=== PATIENT | male | born 1985 | race Caucasian/White ===

== ENCOUNTER 2017-02-21 15:16 | Outpatient (CLI) ==
[2016-06-07 18:51] VITALS: BMI 29.7
[2017-02-21 15:42] LABS: FLU INTERNAL QC INTERNAL QC VALID; RAPID FLU A NEGATIVE (NEGATIVE); RAPID FLU B POSITIVE (NEGATIVE)
== END 2017-02-21 15:17 | disposition home or self-care (01) ==
LOC: LAB 15:16
PROVIDERS: ATTEND Nurse Practitioner Family
DX: J02.9 Acute pharyngitis, unspecified (principal); R50.9 Fever, unspecified
CPT/HCPCS: 87651; 87804; 87880

== ENCOUNTER 2017-08-27 20:00 | Emergency (ER) ==
[2017-08-27 20:15] VITALS: BP 142/93; TEMP 97.8; BMI 29.0
[2017-08-27] MEDS ORDERED: BENADRYL PO STA (20:23)
[2017-08-27] MEDS ORDERED: SOLU-MEDROL 125 MG IM STA (20:23)
--- NOTE | 2017-08-27 20:27 | ED.PDOC ---
General ED Provider: Dr. JAGUAR DWYER Chief Complaint: Rash Stated Complaint: Pateint states that he feels like his face is swollen mostly on the right and also feels like there is a rash and that it is itcy. Denies any exposure to new medications, plants, food that he has not had. Denies any shortness of breath. Time Seen by Physician: 20:24 Mode of Arrival: Walk-In Information Source: Patient Exam Limitations: No limitations Nursing and Triage Documentation Reviewed and Agree: Yes Skin Complaint Exam - Skin Rash/Itching Complaint/Exam Onset/Duration: 2 days Symptoms Are: Still present Initial Severity: Moderate Current Severity: Moderate Location: right cheek Potential Exposures: Reports: Unknown Prior Treatment: zyrtec Aggravating: Reports: None Alleviating: Reports: None Associated Signs and Symptoms: Denies: Difficulty breathing, Fever, Chills Skin Findings: Present: Normal findings (except mild rash on the right ) Body Picture: 1 - mild rash Differential Diagnoses: Allergic Reaction, Other (mild dermatitis ) Review of Systems - Review Of Systems Constitutional: Reports: No symptoms Skin: Reports: Rash, Other (facial edema ) Neurological: Reports: Anxiety All Other Systems: Reviewed and Negative Past Medical History - Past Medical History Previously Healthy: Yes Endocrine: Reports: None Cardiovascular: Reports: None Respiratory: Reports: None Hematological: Reports: None Gastrointestinal: Reports: None Genitourinary: Reports: None Neuro/Psych: Reports: Anxiety Musculoskeletal: Reports: None Cancer: Reports: None - Surgical History General Surgical History: Reports: Unknown - Family History Family History: Reports: Unknown - Social History Smoking Status: Current every day smoker, Heavy tobacco smoker Hx Substance Use: No Alcohol Screening: Occasionally - Immunizations Tetanus Shot up to Date: Yes Physical Exam - Physical Exam Appearance: Ill-appearing, Well-nourished Ill-appearing: Mild Eyes: YONY, EOMI, Conjunctiva clear ENT: Ears normal, Nose normal, Oropharynx normal Neck: Supple Respiratory: Airway patent, Breath sounds clear, Breath sounds equal, Respirations nonlabored Cardiovascular: RRR, Pulses normal, No rub, No murmur GI/: Soft, Nontender, No masses, Bowel sounds normal, No Organomegaly Musculoskeletal: Normal strength, ROM intact, No edema, No calf tenderness Skin: Warm, Dry Neurological: Sensation intact, Motor intact, Reflexes intact, Cranial nerves intact, Alert, Oriented Psychiatric: Affect appropriate, Mood appropriate Critical Care Note - Critical Care Note Total Time (mins): 0 Course - Course Orders, Labs, Meds: Orders Category Date Time Status Diphenhydramine HCl [Benadryl] MEDS 08/27/17 20:23 Discontinued 50 mg PO ONCE STA Methylprednisolone Sod Succ/Pf [Solu-Medrol 125 mg] MEDS 08/27/17 20:23 Discontinued 125 mg IM ONCE STA Medications Discontinued Medications Generic Name Dose Route Start Last Admin Trade Name Sarabjitq PRN Reason Stop Dose Admin Diphenhydramine HCl 50 mg 08/27/17 20:23 08/27/17 20:33 Benadryl PO 08/27/17 20:24 50 mg ONCE STA Administration Methylprednisolone Sodium Succinate 125 mg 08/27/17 20:23 08/27/17 20:36 Solu-Medrol 125 Mg IM 08/27/17 20:24 125 mg ONCE STA Administration Vital Signs: Temp Pulse Resp BP Pulse Ox 08/27/17 20:02 97.8 F 71 16 142/93 H 99 Departure - Departure Time of Disposition: 20:45 Disposition: HOME SELF-CARE Discharge Problem: Dermatitis Instructions: Dermatitis (ED) Condition: Fair Pt referred to PMD for follow-up: Yes Additional Instructions: Take Medications as prescribed Follow up with PCP in 3 days Prescriptions: Methylprednisolone [Medrol Dosepak] 4 mg PO DIRECTED #1 pkg Allergies/Adverse Reactions: Allergies hydrocodone bitartrate [From Lortab] Adverse Reaction (Verified 08/27/17 20:08) Hives Home Medications: Ambulatory Orders Methylprednisolone [Medrol Dosepak] 4 mg PO DIRECTED #1 pkg 08/27/17 Disposition Discussed With: Patient
== END 2017-08-27 21:01 | disposition home or self-care (01) ==
LOC: ED 20:00
DX: L30.9 Dermatitis, unspecified (principal); F17.210 Nicotine dependence, cigarettes, uncomplicated
CPT/HCPCS: 96372; 99282

== ENCOUNTER 2017-10-11 07:28 | Emergency (ER) ==
[2017-10-11 07:28] VITALS: BMI 29.0
[2017-10-11 07:35] VITALS: BP 136/100; TEMP 97.2
--- NOTE | 2017-10-11 07:46 | ED.PDOC ---
General ED Provider: Dr. WILLI SWIFT JR Chief Complaint: Tooth Problem Stated Complaint: Patient Name: MARLYN MATTAedical Record Number: [id number]. Date: 11/01/13 JENIFFER ROMO: currently on lortab for rotten tooth pain[ End]c/o sore throat, dizziness, emesis & headache[End]. Date: 04/25/14 : Dr. SAM BROWN: Tooth Problem. : 02/04/15 :Dr. NANCY DENSON-ER: Tooth Problem..augmentin 875mg ..ultram 50mg .follow up with dentist varun. 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 : 06/27/15 NANCY DENSON-ER: Tooth Problem. toradol 10mg qid prn #16...amoxil 250mg tid x 7days...f/u with dentist varun. : 09/10/15 Sinusitis (ED). augmentin 875mg bid x 10 days..flonase nasal spray one puff each nostril bid...stop smoking...off work ..recheck in 72hrs if not better. : 10/15/15:Dr. SAM BROWN: Behavioral Complaint: cant get rest, depressed lost father. Time Seen by Physician: 13:49 (onset since lost fater a few days ago). : 03/20/16 :Dr. NANCY DENSON-ER:: my tooth is hurting..dr moreno is gonna do an extraction. ultram 50mg 1-2 tabs q 8hrs prn pain #20..penvk 500mg bid x 7days...f/u wtih dr moreno. : 08/27/17 :Dr. JAGUAR DWYER: Rash: Pateint states that he feels like his face is swollen mostly on the right and also feels like there is a rash and that it is itcy. Denies any exposure to new medications, plants, food that he has not had. Denies any shortness of breath. PAIN RIGHT SIDE OF FACE IN TO EAR. HAS BEEN ON AMOXIL FOR A FEW DAYS TO PREVENT INFECTION PRIOR TO TOOTH EXTRACTION. [ End ]97.2 67 18 97% 136/100 8/10 right upper tooth, chills Time Seen by Physician: 07:58 Mode of Arrival: Walk-In Information Source: Patient Exam Limitations: No limitations [facility] Nursing and Triage Documentation Reviewed and Agree: No Review of Systems - Review Of Systems Constitutional: Reports: Chills Eyes: Reports: No symptoms Ears, Nose, Mouth, Throat: Reports: Ear pain, Mouth pain Respiratory: Reports: No symptoms Cardiac: Reports: No symptoms GI: Reports: No symptoms : Reports: No symptoms Musculoskeletal: Reports: No symptoms Skin: Reports: No symptoms Neurological: Reports: No symptoms Endocrine: Reports: No symptoms Hematologic/Lymphatic: Reports: No symptoms All Other Systems: Other Past Medical History - Past Medical History Previously Healthy: Yes Endocrine: Reports: None Cardiovascular: Reports: None Respiratory: Reports: None Hematological: Reports: None Gastrointestinal: Reports: None Genitourinary: Reports: None Neuro/Psych: Reports: Anxiety Musculoskeletal: Reports: None Cancer: Reports: None - Surgical History General Surgical History: Reports: Unknown - Family History Family History: Reports: Unknown - Social History Smoking Status: Current every day smoker, Heavy tobacco smoker Hx Substance Use: No Alcohol Screening: Occasionally Physical Exam - Physical Exam Appearance: Ill-appearing Ill-appearing: Mild Pain Distress: Moderate Eyes: YONY, EOMI, Conjunctiva clear ENT: Ears normal, Nose normal, Erythema (decayed teeth) Neck: Supple Respiratory: Airway patent, Breath sounds clear, Breath sounds equal, Respirations nonlabored Cardiovascular: RRR, Pulses normal, No rub, No murmur GI/: Soft, Nontender, No masses, Bowel sounds normal, No Organomegaly Musculoskeletal: Normal strength, ROM intact, No edema, No calf tenderness Skin: Warm, Dry, Normal color Neurological: Sensation intact, Motor intact, Reflexes intact, Cranial nerves intact, Alert, Oriented Psychiatric: Affect appropriate, Mood appropriate Critical Care Note - Critical Care Note Total Time (mins): 0 Course - Course Vital Signs: Temp Pulse Resp BP Pulse Ox 10/11/17 07:31 97.2 F L 67 18 136/100 H 97 Departure - Departure Time of Disposition: 07:58 Disposition: HOME SELF-CARE Discharge Problem: Toothache Instructions: Dental Abscess (ED), Otitis Externa (ED), Toothache (ED) Condition: Good Pt referred to PMD for follow-up: Yes (dentist) Additional Instructions: call dentist tomorrow inform of antibiotic and improvement follow up as planned PMD tomorrow if not improved return if fever over 101.0 Ultram for pain stop if any rash or swelling return if hoarseness facial swelling or short of air recommend stop smoking avoid solid obects in ear- recommend use liquid to clean ear if needed(swimear or sweet oil) Prescriptions: Clindamycin HCl 300 mg PO QID #40 capsule Neomycin/Polymyxin B/Hc Otic [Cortisporin Otic Susp] 4 drop OT QID #1 bottle Tramadol HCl [Ultram] 50 mg PO Q6H PRN #14 tablet PRN Reason: PAIN Allergies/Adverse Reactions: Allergies hydrocodone bitartrate [From Lortab] Adverse Reaction (Verified 10/11/17 07:30) Hives Home Medications: Ambulatory Orders Ibuprofen 800 mg PO PRN 09/13/17 Amoxicillin [Amoxil] 500 mg PO Q8HR 10/11/17 Clindamycin HCl 300 mg PO QID #40 capsule 10/11/17 Neomycin/Polymyxin B/Hc Otic [Cortisporin Otic Susp] 4 drop OT QID #1 bottle 03/23 Tramadol HCl [Ultram] 50 mg PO Q6H PRN #14 tablet 10/11/17
== END 2017-10-11 08:09 | disposition home or self-care (01) ==
LOC: ED 07:28
DX: K04.7 Periapical abscess without sinus (principal); H60.90 Unspecified otitis externa, unspecified ear; K08.89 Other specified disorders of teeth and supporting structures; K02.7 Dental root caries; F17.210 Nicotine dependence, cigarettes, uncomplicated
CPT/HCPCS: 99282

== ENCOUNTER 2018-06-28 09:45 | Outpatient (CLI) ==
--- NOTE | 2018-06-28 10:54 | DI ---
EXAM: Two views of the chest. History: Upper respiratory infection. Comparison: Chest radiograph 06/07/2016 Findings: Heart size is normal. No focal consolidation. No appreciable pleural fluid and no pneumo thorax. No acute osseous abnormalities. Impression: No acute cardiopulmonary process
== END 2018-06-28 09:46 | disposition home or self-care (01) ==
LOC: RAD 09:45
PROVIDERS: ATTEND Emergency Medicine
DX: J06.9 Acute upper respiratory infection, unspecified (principal)

== ENCOUNTER 2019-03-20 06:50 | Emergency (ER) ==
[2019-03-20 07:02] VITALS: TEMP 97.5; BMI 29.3
--- NOTE | 2019-03-20 07:44 | ED.PDOC ---
General ED Provider: Dr. NANCY MALDONADO Chief Complaint: Chest Pain Stated Complaint: Toothache. Chronic dental caries and hx multiple extractions. In additon to dental pain patient complains of intermittent dull pressure type of pain in lt side of chest w/o radiating featureds. No pressue at or pain at present.Pain moving from his facial region down into upper chest wall. Has pressure at times-primarily at rest. Denies dyspnea. Family hx heart problems although not familar with anyone with early or premature heart disease. Time Seen by Physician: 07:30 Mode of Arrival: Walk-In Information Source: Patient Exam Limitations: No limitations Nursing and Triage Documentation Reviewed and Agree: Yes Does patient meet sepsis criteria?: No If yes, has appropriate treatment been initiated?: No System Inflammatory Response Syndrome: Not Applicable Sepsis Protocol: For patient's 13 years and over: Temp is 96.8 and below OR 101 and greater Pulse >90 BPM Resp >20/minute Acutely Altered Mental Status Are patient's symptoms suggestive of a new infection, such as: -Pneumonia -Skin, Soft Tissue -Endocarditis -UTI -Bone, Joint Infection -Implantable Device -Acute Abdominal Infection -Wound Infection -Meningitis -Blood Stream Catheter Infection -Unknown EENT Complaint Exam - Dental/Oral Complaint/Exam Mechanism of Injury: No known trauma Onset/Duration: Several months with recent worsening Symptoms Are: Worse Timing: Constant Initial Severity: Mild Current Severity: Moderate Location: uppper lt maxilla into facial region Character: Reports: Aching, Throbbing Aggravating: Reports: Chewing Alleviating: Reports: OTC Meds (minimal relief with ibuprofen) Associated Signs and Symptoms: Reports: Swelling. Denies: Discharge, Fever, Foul odor, Foul taste in mouth Related History: Reports: Similar episode Cardiac Risk Factors: Reports: Family history Dental/Oral Surgical History: Reports: Third Molar Extractions Tooth Findings: Present: Percussion tenderness (lt 2nd molar), Gross decay, Gross caries Cervical Lymphadenopathy Present: No Facial Swelling Present: Yes (lt minimal with tenderness) Bleeding Present: No Septal Hematoma: No Foreign Body Present: No Dysphagia Present: No Drooling Present: No Asymmetrical Tonsillar Swelling Present: No Uvula Midline: Yes Jyoti-tonsillar Fluctuence: No Trismus Present: No Palatal Petechiae Present: No Scarlatinaform Rash Present: No Lesions: Absent: Gums, Buccal Mucosa Exanthem: Absent: Gums, Buccal Mucosa Vesicles: Absent: Gums, Buccal Mucosa Teeth Picture: 1 - painful region fractured toothpainful to percusion Differential Diagnoses: Dental Abcess, Dental Caries, Fractured Tooth, Odontogenic Pain Review of Systems - Review Of Systems Constitutional: Reports: No symptoms Eyes: Reports: No symptoms Ears, Nose, Mouth, Throat: Reports: No symptoms Respiratory: Reports: No symptoms Cardiac: Reports: No symptoms GI: Reports: No symptoms : Reports: No symptoms Musculoskeletal: Reports: No symptoms Skin: Reports: No symptoms Neurological: Reports: No symptoms Endocrine: Reports: No symptoms Hematologic/Lymphatic: Reports: No symptoms All Other Systems: Reviewed and Negative Past Medical History - Past Medical History Previously Healthy: Yes Endocrine: Reports: None Cardiovascular: Reports: None Respiratory: Reports: None Hematological: Reports: None Gastrointestinal: Reports: None Genitourinary: Reports: None Neuro/Psych: Reports: Anxiety Musculoskeletal: Reports: None Cancer: Reports: None - Surgical History General Surgical History: Reports: Unknown - Family History Family History: Reports: Unknown - Social History Smoking Status: Current every day smoker, Heavy tobacco smoker Hx Substance Use: No Alcohol Screening: None - Immunizations Tetanus Shot up to Date: Yes Physical Exam - Physical Exam Appearance: Well-appearing, No pain distress, Well-nourished Ill-appearing: None Pain Distress: Mild Eyes: YONY, EOMI, Conjunctiva clear ENT: Ears normal, Nose normal, Oropharynx normal Respiratory: Airway patent, Breath sounds clear, Breath sounds equal, Respirations nonlabored Cardiovascular: RRR, Pulses normal, No rub, No murmur GI/: Soft, Nontender, No masses, Bowel sounds normal, No Organomegaly Musculoskeletal: Normal strength, ROM intact, No edema, No calf tenderness Skin: Warm, Dry, Normal color Neurological: Sensation intact, Motor intact, Reflexes intact, Cranial nerves intact, Alert, Oriented Psychiatric: Affect appropriate, Mood appropriate Critical Care Note - Critical Care Note Total Time (mins): 0 Course - Course Vital Signs: Temp Pulse Resp BP Pulse Ox 03/20/19 06:50 97.5 F L 82 20 157/100 H 97 Departure - Departure Time of Disposition: 09:05 Disposition: HOME SELF-CARE Discharge Problem: Dental abscess, Atypical chest pain, Elevated BP without diagnosis of hypertension Instructions: Dental Abscess (ED), Chest Pain (ED), Chronic Hypertension (ED) Condition: Good Pt referred to PMD for follow-up: Yes IPMP verified?: No Additional Instructions: Calll for dental care as suggested Take antibiotic as directed Use toradol for pain as needed/do not combine with ibuprofen\ Seek dental care as suggested and follow up PCP in 1-2 weeks Allergies/Adverse Reactions: Allergies No Known Drug Allergies Adverse Reaction (Verified 03/20/19 07:03) Home Medications: Ambulatory Orders Amoxicillin 875 mg PO BID #20 tablet 03/20/19 Fluticasone Propionate [Flonase Allergy Relief] 2 spray INH DAILY PRN 03/20/19 Ketorolac Tromethamine [Toradol] 10 mg PO Q6H #20 tablet 03/20/19 Loratadine [Claritin] 10 mg PO DAILY PRN 03/20/19 Disposition Discussed With: Patient Cardiovascular Complaint Exam - Chest Pain Complaint/Exam Onset: Gradual Duration: 2 days Symptoms Are: Still present Timing: Intermittent Initial Severity: Mild Current Severity: Mild Location: Reports: Midsternal, Upper sternal Pain Radiates: Reports: None Character: Reports: Tightness Aggravating: Reports: None Alleviating: Reports: Rest Associated Signs and Symptoms: Denies: Diaphoresis, Nausea, Vomiting, Fever, Palpitations, Cough, Hemoptysis, Back pain, Abdominal pain, Dizziness, Short of air, Calf pain, Calf swelling Related History: Denies: Similar episode Related Surgical History: Reports: None History of Healthcare-Acquired Pneumonia: Reports: No AMI/ACS Risk Factors: Reports: Family history TAD Risk Factors: Reports: None Pulmonary Embolism Risk Factors: Reports: None Prior Care for this Complaint: No Recent Stress Test: No Recent Echo/LV Function: No JVD Present: No Subcutaneous Emphysema Present: No Diminshed Breath Sounds: No Reproducible Chest Wall Pain: No Bilateral Pulses Present: Yes Unequal Pulses Noted: No If Risk Factors for AMI/ACS Consider: EKG Documents Reviewed: EMS records Cloth Drier Consulted: No Differential Diagnoses: Other
--- NOTE | 2019-03-20 08:28 | CT ---
EXAM: CT FACIAL BONES HISTORY: Dental decayed. TECHNIQUE: CT facial bones without contrast. 3-mm axial sections. Coronal and sagital reformations . FINDINGS: The patient is partially edentulous. Multiple teeth remaining demonstrate dental caries. A few toot h root abscesses are suggested along the more anterior left mandibular level teeth. There is no visi ble soft tissue abscess. Salivary glands are within normal limits. Parapharyngeal tissue planes are preserved. There is no lymphadenopathy. No mastoid process effusion. There are moderate areas of mucosal thickening in the frontal and ethmoid sinuses, less so maxillary cells. IMPRESSION: 1. Multiple dental caries. Small tooth root abscesses are suggested along the more anterior left ma ndibular level teeth. No soft tissue abscesses identified. Follow up dental visit is recommended. 2. Moderate chronic paranasal sinusitis.
--- NOTE | 2019-03-20 08:29 | DI ---
EXAM: CHEST FRONTAL AND LATERAL VIEWS HISTORY: Chest pain. COMPARISON: 06/28/2018 FINDINGS: Heart size and mediastinal contour remain within normal limits. No acute infiltrates. Normal vascularity with no pleural fluid or pneumothorax. The bony thorax has no acute finding. IMPRESSION: No acute process.
[2019-03-20 08:38] VITALS: BP 137/91
== END 2019-03-20 09:30 | disposition home or self-care (01) ==
LOC: ED 06:50
DX: R07.9 Chest pain, unspecified (principal); K08.89 Other specified disorders of teeth and supporting structures; K02.9 Dental caries, unspecified; Z72.0 Tobacco use; R03.0 Elevated blood-pressure reading, without diagnosis of hypertension
CPT/HCPCS: 36415; 80053; 80306; 81001; 84484; 85025; 85651; 93005; 93010; 99283